=== PATIENT | female | born 1955 | race Caucasian/White ===

== ENCOUNTER 2025-06-30 11:35 | Emergency (ER) | payer MEDICARE, OTHER ==
[~2025-06-30] VITALS: Ht 160 cm; Wt 74.0 kg
[2025-06-30] MEDS ORDERED: CIPROFLOX-DEXA7.5 ML LEFTEAR (12:14)
== END 2025-06-30 12:12 | disposition home or self-care (01) ==
LOC: ER 11:35
DX: S09.22XA Traumatic rupture of left ear drum, initial encounter (principal); T70.29XA Other effects of high altitude, initial encounter; H90.2 Conductive hearing loss, unspecified; Z59.89 Other problems related to housing and economic circumstances; Z88.1 Allergy status to other antibiotic agents; E78.5 Hyperlipidemia, unspecified; W17.89XA Other fall from one level to another, initial encounter
CPT/HCPCS: 99282